=== PATIENT | female | born 1990 | race Two or more races ===

== ENCOUNTER 2017-07-16 03:20 | Emergency (ER) | payer MEDICAID ==
[~2017-07-16] VITALS: Ht 152.4 cm; Wt 106.1 kg
[~2017-07-16 03:20] MED LIST: INHALER
[2017-07-16] MEDS ORDERED: VENTOLIN HFA AER (03:31)
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
[2017-07-16] MEDS ORDERED: predniSONE 10 MG TABLET PO ONE (04:15)
[2017-07-16] MEDS ORDERED: IPRATROPIUM BROMIDE 0.5 MG/2.5 ML NEBU NEB ONE (04:15)
[2017-07-16] MEDS ORDERED: ALBUTEROL SULFATE 2.5 MG/3 ML NEBU NEB ONE (04:15)
[2017-07-16] MEDS ORDERED: predniSONE 10 MG TABLET ONE (04:23)
[2017-07-16] MEDS ORDERED: predniSONE 50 MG TABLET ONE (04:24)
[2017-07-16] MEDS ORDERED: ALBUTEROL SULFATE 2.5 MG/ 0.5 ML NEBU ONE (04:25)
[2017-07-16] MEDS ORDERED: IPRATROPIUM BROMIDE 0.5 MG/2.5 ML NEBU ONE (04:25)
--- NOTE | 2017-07-16 05:53 | NUR ---
Patient discharged to home in stable conditon. Written and verbal after care instructions given. Patient verbalizes understanding of instructions.
== END 2017-07-16 06:05 | disposition home or self-care (01) ==
LOC: ER 03:25
DX: J45.901 Unspecified asthma with (acute) exacerbation (principal)
CPT/HCPCS: A4663; J3590; J7512

== ENCOUNTER 2018-03-28 01:53 | Emergency (ER) | payer MEDICAID ==
[~2018-03-28] VITALS: Ht 152.4 cm; Wt 108.4 kg
[~2018-03-28 01:53] MED LIST changes: +VENTOLIN HFA AER
--- NOTE | 2018-03-28 02:10 | NUR ---
Ambulated to ER Room 1A c/o fever and lower abdominal pain.
--- NOTE | 2018-03-28 03:00 | NUR ---
Seen and evaluated by Dr. Estrada.
--- NOTE | 2018-03-28 03:10 | NUR ---
Ambulated to bathroom, steady on feet. Voided and specimen sent to lab.
--- NOTE | 2018-03-28 03:30 | NUR ---
Pt appears comfortable. Sleeping at periodic intervals.
[2018-03-28 03:43] LABS: BASOPHILS % (AUTO) 0.2 % (0.0-2.0); EOSINOPHILS % (AUTO) 0.1 % (0.0-7.0); HEMATOCRIT 38.4 % (31.2-41.9); HEMOGLOBIN 12.6 g/dL (10.9-14.3); LYMPHOCYTES # (AUTO) 1.2 K/uL (20.0-40.0); LYMPHOCYTES % (AUTO) 18.6 % (20.5-51.5); MEAN CORPUSCULAR HEMOGLOBIN 26.3 uug (24.7-32.8); MEAN CORPUSCULAR HGB CONC 33 g/dL (32.3-35.6); MEAN CORPUSCULAR VOLUME 80.3 fL (75.5-95.3); MONOCYTES # (AUTO) 0.5 K/uL (2.0-10.0); NEUTROPHILS # (AUTO) 4.7 K/uL (1.8-8.9); NEUTROPHILS % (AUTO) 73.1 % (38.5-71.5); PLATELET COUNT (AUTO) 292 K/uL (179-408); RED BLOOD CELL COUNT(AUTO) 4.79 MIL/uL (3.63-4.92); WHITE BLOOD COUNT (AUTO) 6.4 K/uL (3.8-11.8)
[2018-03-28 03:47] LABS: *BILIRUBIN,URIN NEGATIVE (NEGATIVE); *BLOOD, URINE 2+ (NEGATIVE); *CLARITY,URINE CLEAR (CLEAR); *COLOR,URINE LIGHT YELLOW (YELLOW); *KETONES,URINE NEGATIVE (NEGATIVE); *PROTEIN,URINE NEGATIVE (NEGATIVE); *UROBILINOGEN,URINE 0.2 E.U./dl (NORMAL); LEUKOCYTE ESTERASE ,URINE NEGATIVE (NEGATIVE); NITRITE, URINE NEGATIVE (NEGATIVE); UGLUCOSE NEGATIVE (NEGATIVE)
[2018-03-28 03:55] LABS: BILIRUBIN,DIRECT 0.1 mg/dL (0.0-0.2); BILIRUBIN,TOTAL 0.3 mg/dL (0.2-1.0); CREATININE 0.7 mg/dL (0.6-1.3); POTASSIUM 3.7 mmol/L (3.5-5.1); TOTAL PROTEIN, SERUM 7.1 g/dL (6.4-8.2)
[2018-03-28 04:03] LABS: BACTERIA,URINE FEW /HPF (NONE SEEN); SQUAMOUS EPITHELIAL CELL,UR MODERATE /HPF (NONE SEEN); WBC,URINE 0-3 /HPF (0-3)
--- NOTE | 2018-03-28 05:33 | NUR ---
Brought to Radiology Dept per wheelchair by [employer] for CT scan.
--- NOTE | 2018-03-28 06:35 | NUR ---
Back to room per wheelchair accompanied by Yao,Instructional Resource Teacher; CT scanner down and was unable to do CT. Pt made comfortable. ER Alma Estrada and Jacinda, java flex developer Vanesa and RN Senior Mechanical Estimator Bianca made aware.
--- NOTE | 2018-03-28 07:05 | NUR ---
SBAR report given to Day Shift BUILDING CERTIFIERMARTHA Samano. Pt sleeping at this time. No apparent acute distress.
--- NOTE | 2018-03-28 07:50 | NUR ---
pt was d/c'd home after dr Monaco evaluation. d/c instructions given to the pt. pt denies pain. no nausea. no sob.
[2018-03-28 07:52] VITALS: BP 115/64
== END 2018-03-28 07:53 | disposition home or self-care (01) ==
LOC: ER 01:57
DX: R10.31 Right lower quadrant pain (principal); J45.909 Unspecified asthma, uncomplicated
CPT/HCPCS: 36415; 80048; 80076; 81001; 83690; 84703; 85025; 99284; A4663

== ENCOUNTER 2018-12-07 06:08 | Emergency (ER) | payer MEDICAID ==
[~2018-12-07] VITALS: Ht 152.4 cm; Wt 108.0 kg
[2018-12-07] MEDS ORDERED: ONDANSETRON HCL 4 MG TABLET ONE (06:37)
[2018-12-07 06:38] LABS: *BILIRUBIN,URIN NEGATIVE (NEGATIVE); *BLOOD, URINE NEGATIVE (NEGATIVE); *CLARITY,URINE CLEAR (CLEAR); *COLOR,URINE LIGHT YELLOW (YELLOW); *KETONES,URINE NEGATIVE (NEGATIVE); *UROBILINOGEN,URINE 0.2 E.U./dl (NORMAL); LEUKOCYTE ESTERASE ,URINE 1+ (NEGATIVE); NITRITE, URINE NEGATIVE (NEGATIVE); UGLUCOSE NEGATIVE (NEGATIVE)
[2018-12-07 06:39] LABS: *URINE HCG, QUAL NEGATIVE (NEGATIVE)
[2018-12-07] MEDS ORDERED: ONDANSETRON HCL 4 MG TABLET PO ONE (06:45)
[2018-12-07 06:46] LABS: SQUAMOUS EPITHELIAL CELL,UR MODERATE /HPF (NONE SEEN)
[2018-12-07 06:47] LABS: BACTERIA,URINE NONE SEEN /HPF (NONE SEEN); RBC,URINE 0-3 /HPF (0-3)
--- NOTE | 2018-12-07 07:01 | NUR ---
Patient discharged to home in stable conditon. Written and verbal after care instructions given. Patient verbalizes understanding of instructions. Pt left ER in stable gait. Tolerated PO fluids. No acute distress noted. No abd pain. No N/V at this time.
[2018-12-07 07:02] VITALS: BP 110/81
== END 2018-12-07 07:03 | disposition home or self-care (01) ==
LOC: ER 06:10
DX: R11.10 Vomiting, unspecified (principal); R09.89 Other specified symptoms and signs involving the circulatory and respiratory systems; R07.0 Pain in throat; J45.909 Unspecified asthma, uncomplicated; Z88.8 Allergy status to other drugs, medicaments and biological substances; Z79.899 Other long term (current) drug therapy
CPT/HCPCS: 84703; A4663; Q0162

== ENCOUNTER 2018-12-22 23:48 | Emergency (ER) | payer MEDICAID ==
[~2018-12-22] VITALS: Ht 152.4 cm; Wt 104.8 kg
[2018-12-23] MEDS ORDERED: ONDA4TAB5 GT (00:06)
[2018-12-23] MEDS ORDERED: BUDE10.2 IH (00:07)
[2018-12-23] MEDS ORDERED: CEphaleXIN 500 MG CAPSULE PO ONE (00:45)
[2018-12-23] MEDS ORDERED: CEphaleXIN 500 MG CAPSULE ONE (00:51)
[2018-12-23 00:55] VITALS: BP 116/81
== END 2018-12-23 00:55 | disposition home or self-care (01) ==
LOC: ER 23:51
DX: J02.9 Acute pharyngitis, unspecified (principal); H57.10 Ocular pain, unspecified eye; J45.909 Unspecified asthma, uncomplicated; Z88.8 Allergy status to other drugs, medicaments and biological substances; Z79.899 Other long term (current) drug therapy
CPT/HCPCS: A4663

== ENCOUNTER 2019-01-02 07:59 | Emergency (ER) | payer MEDICAID ==
[~2019-01-02] VITALS: Ht 165.1 cm; Wt 111.1 kg
[~2019-01-02 07:59] MED LIST changes: +BUDE10.2 IH; +ONDA4TAB5 GT; -VENTOLIN HFA AER
[2019-01-02] MEDS ORDERED: predniSONE 20 MG TABLET PO ONE (08:15)
[2019-01-02] MEDS ORDERED: predniSONE 10 MG TABLET ONE (08:22)
[2019-01-02] MEDS ORDERED: predniSONE 50 MG TABLET ONE (08:22)
[2019-01-02 08:33] LABS: *URINE HCG, QUAL NEGATIVE (NEGATIVE)
[2019-01-02 09:05] VITALS: BP 116/81
--- NOTE | 2019-01-02 09:05 | NUR ---
Patient discharged to home in stable conditon. Written and verbal after care instructions given. Patient verbalizes understanding of instructions.PT WALKS IN STEADY GAIT. PT BREATHING NORMALLY. NO SIGN OF DISTRESS.
== END 2019-01-02 09:08 | disposition home or self-care (01) ==
LOC: ER 07:59
DX: J45.901 Unspecified asthma with (acute) exacerbation (principal); J20.9 Acute bronchitis, unspecified; Z90.89 Acquired absence of other organs; Z88.8 Allergy status to other drugs, medicaments and biological substances; Z79.899 Other long term (current) drug therapy
CPT/HCPCS: 71046; 84703; 99284; J7512 ×2; A4663

== ENCOUNTER 2019-01-06 07:41 | Emergency (ER) | payer MEDICAID ==
[~2019-01-06] VITALS: Ht 165.1 cm; Wt 111.1 kg
[2019-01-06] MEDS ORDERED: predniSONE 50 MG TABLET ONE (08:00)
[2019-01-06] MEDS ORDERED: predniSONE 10 MG TABLET PO ONE (08:00)
[2019-01-06] MEDS ORDERED: ALBUTEROL SULFATE 2.5 MG/3 ML NEBU NEB ONE (08:00)
[2019-01-06] MEDS ORDERED: predniSONE 10 MG TABLET ONE (08:00)
[2019-01-06] MEDS ORDERED: ALBUTEROL SULFATE 2.5 MG/3 ML NEBU ONE (08:03)
--- NOTE | 2019-01-06 09:07 | NUR ---
Patient says that she feels much better. Patient discharged to home in stable conditon. Written and verbal after care instructions given to patient. Patient verbalizes understanding & compliance of instructions. Patient left ER with brisk steady gait.
== END 2019-01-06 09:09 | disposition home or self-care (01) ==
LOC: ER 07:41
DX: J45.901 Unspecified asthma with (acute) exacerbation (principal); J45.909 Unspecified asthma, uncomplicated; Z88.8 Allergy status to other drugs, medicaments and biological substances; Z90.89 Acquired absence of other organs; Z79.899 Other long term (current) drug therapy
CPT/HCPCS: 94640; 99283; J7512 ×2; A4663

== ENCOUNTER 2019-02-02 11:25 | Emergency (ER) | payer MEDICAID ==
[~2019-02-02] VITALS: Ht 152.4 cm; Wt 115.7 kg
--- NOTE | 2019-02-02 11:42 | NUR ---
PT IS IN ROOM #2A. DR LUNA EVALUATED THE PT.
[2019-02-02] MEDS ORDERED: IPRATROPIUM BROMIDE 0.5 MG/2.5 ML NEBU NEB ONE (11:45)
[2019-02-02] MEDS ORDERED: ONDANSETRON ODT 4 MG TAB.RAPDIS SL ONE (11:45)
[2019-02-02] MEDS ORDERED: ALBUTEROL SULFATE 2.5 MG/3 ML NEBU NEB ONE (11:45)
[2019-02-02] MEDS ORDERED: ONDANSETRON ODT 4 MG TAB.RAPDIS ONE (11:46)
[2019-02-02] MEDS ORDERED: IPRATROPIUM BROMIDE 0.5 MG/2.5 ML NEBU ONE (11:53)
[2019-02-02] MEDS ORDERED: ALBUTEROL SULFATE 2.5 MG/ 0.5 ML NEBU ONE (11:53)
--- NOTE | 2019-02-02 12:14 | NUR ---
PT WAS D/C'D TO HOME. D/C INSTRUCTIONS GIVEN TO THE PT.
[2019-02-02 12:15] VITALS: BP 129/77
== END 2019-02-02 12:16 | disposition home or self-care (01) ==
LOC: ER 11:25
DX: J45.909 Unspecified asthma, uncomplicated (principal); Z90.89 Acquired absence of other organs; Z79.899 Other long term (current) drug therapy
CPT/HCPCS: A4663; J3590; Q0162